=== PATIENT | female | born 1980 | race Caucasian/White ===

== ENCOUNTER 2016-11-20 18:11 | Emergency (ER) | payer OTHER ==
[~2016-11-20] VITALS: Ht 167.6 cm; Wt 102.1 kg
[2016-11-20 18:14] VITALS: BP 143/85
--- NOTE | 2016-11-20 18:54 | ED HAND/WRIST INJURY COMPLAINT ---
History of Present Illness General Chief Complaint: Laceration Procedure Stated Complaint: LAC TO FINGER TIP LEFT HAND FROM KNIFE Source: patient Exam Limitations: no limitations Vital Signs & Intake/Output Vital Signs & Intake/Output Vital Signs Date Time Temp Pulse Resp B/P B/P Pulse O2 O2 Flow FiO2 Mean Ox Delivery Rate 11/20 1814 96.8 74 16 143/85 98 Room Air Allergies Coded Allergies: MDX - EGGS (EGGS) (UNKNOWN 05/19/11) Triage Note: 36 Y/O FEMALE C/O LACERATION TO TIP OF L 1ST FINGER; WAS SLICING FOOD WITH KNIFE AND CAUGHT TIP OF FINGER INCLUDING NAIL, PER PT. DRESSING IN PLACE WITH NO ACTIVE BLEEDING NOTED. PT UNSURE OF LAST TETANUS Triage Nurses Notes Reviewed? yes Occurred: just prior to arrival Duration: minute(s):, constant, continues in ED Timing: single episode today Injury Environment: home Severity: moderate, severe Pain/Injury Location: Right: 2nd finger. Method of Injury: laceration No Modifying Factors: none : No Patient currently breastfeeds: No HPI: 36-year-old female comes into emergency room for further evaluation of laceration to left index finger. Patient was reportedly cutting basal at home and cut her index finger. Last tetanus shot is unknown. Some associated bleeding. Patient comes in for further evaluation. Denies any other associated symptoms. Sharp throbbing pain. Past History Travel History Traveled to [place] past 21 day No Medical History Any Pertinent Medical History? 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 No Review of Systems Review of Systems Constitutional: Reports: no symptoms. EENTM: Reports: no symptoms. Respiratory: Reports: no symptoms. Cardiovascular: Reports: no symptoms. GI: Reports: no symptoms. Genitourinary: Reports: no symptoms. Musculoskeletal: Reports: see HPI. Skin: Reports: see HPI. Neurological/Psychological: Reports: no symptoms. Hematologic/Endocrine: Reports: no symptoms. Immunologic/Allergic: Reports: no symptoms. All Other Systems: Reviewed and Negative Physical Exam Physical Exam General Appearance: well developed/nourished, mild distress Head: atraumatic Eyes: Bilateral: normal appearance. Ears, Nose, Throat: normal ENT inspection, hearing grossly normal Neck: normal inspection Cardiovascular/Respiratory: no respiratory distress Back: normal inspection Hand Left: 2nd finger, avulsion of skin at the distal phalynx affecting about 20 % of the nail, capillary refill intact Hand Right: normal inspection Neurologic/Tendon: normal sensation, normal motor functions, normal tendon functions, responds to pain, no evidence tendon injury, no pulse deficit Skin: intact, normal color, warm/dry Lymphatic: no anterior cervical bret Progress Differential Diagnosis: cellulitis, contusion, compartment syndrome, dislocation , fracture, paronychia, septic arthritis, sprain, tenosynovitis Plan of Care: 11/20/2016 7:08:23 PM Nothing to suture on exam. Irrigated with saline. Kaltostat dressings placed. Dry sterile dressing placed over it with compression wrap. return if any other concerns worsening symptoms. Departure Departure Disposition: HOME OR SELF CARE Condition: Stable Clinical Impression Primary Impression: Avulsion of skin of finger Referrals: CARTER SOSA,PRAMOD Willis (PCP/Family) Additional Instructions: Keep dressing in place for 2 days. In 2 days soak in warm water and let dressing fall off on its own. Watch for signs of infection such as redness or discharge fever chills. Return if any other concerns worsening symptoms. Please go over all results of today's visit with your primary care doctor. Contact your primary care doctor to let them know you were here in the emergency room. There may be nonspecific findings which may not be related to your visit today here in the emergency room but may require further evaluation and chronic monitoring by your primary care doctor. If you had a laceration today the chance of foreign body always remains. You should follow-up with your primary care doctor for recheck in 3-5 days for a wound check. If you had an x-ray done there is a chance that a fracture could have been missed on initial read and you should follow-up with your primary care doctor for repeat x-rays if symptoms persist. If your blood pressure was elevated here in the emergency room please have rechecked by her primary care doctor within the next 48 hours by your primary care doctor. If you were prescribed a narcotic here in the emergency room or any type of controlled substances you're not allowed to drive while taking this medication or operate any type of heavy machinery. Narcotics can make you feel lightheaded dizziness nausea and can cause constipation. 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 Thank you for choosing [facility] emergency room. Please return to the emergency room immediately if you have any other concerns worsening of symptoms. Departure Forms: Customer Survey General Discharge Information
== END 2016-11-20 19:35 ==
LOC: ERH 18:11
DX: S61.211A Laceration without foreign body of left index finger without damage to nail, initial encounter (principal); W26.0XXA Contact with knife, initial encounter; Y93.G1 Activity, food preparation and clean up
CPT/HCPCS: 90471; 90714